=== PATIENT | male | born 1975 | race Caucasian/White ===

== ENCOUNTER → 2022-05-04 | Day surgery (SDC) | payer BC ==
[~2022-05-04] MED LIST: ASPIRIN81 MG PO; LIDOCAINE HCL 2% LOCAL INJ 5 ML SDV VIAL INJ ONE; MIDAZOLAM HCL 2 MG/2 ML VIAL ONE; MULTI-VITAMIN1 EACH PO; POVIDONE IODINE 0.05% 0.05 % ML PO ONE; PROPOFOL IV EMULSION 10 MG/ML 20 ML VIAL ONE; VITAMIN D325 MCG PO
[2022-05-04 15:10] VITALS: BP 132/74
== END | disposition home or self-care (01) ==
LOC: OR 12:21
PROVIDERS: ATTEND Internal Medicine Gastroenterology
DX: Z12.11 Encounter for screening for malignant neoplasm of colon (principal); Z53.8 Procedure and treatment not carried out for other reasons; Z01.810 Encounter for preprocedural cardiovascular examination; K21.9 Gastro-esophageal reflux disease without esophagitis
CPT/HCPCS: 93005; J2001; J2250; J2704; 43239